=== PATIENT | male | born 1980 | race Caucasian/White ===

== ENCOUNTER 2024-08-19 10:40 | Emergency (ER) | payer OTHER ==
[2024-08-19] MEDS: Iopamidol 755 Mg/ML 100 ML Bottle IVPUSH ONE (11:13)
[2024-08-19] MEDS ORDERED: Sodium Chloride 0.9% 100 ML IV SCH (11:15)
[2024-08-19 11:24] LABS: BASOPHILS PERCENT AUTO 0.7 % (0.0-1.0); EOSINOPHILS ABSOLUTE AUTO 0.1 K/mm3 (0.0-0.4); EOSINOPHILS PERCENT AUTO 2.1 % (0.0-6.0); HEMATOCRIT 43.6 % (42.0-52.0); HEMOGLOBIN 15.3 gm/dl (14.0-18.0); IMMATURE GRAN ABSOLUTE AUTO 0.01 K/mm3 (0.00-0.05); IMMATURE GRAN PERCENT AUTO 0.2 % (0.0-0.4); LYMPHOCYTES ABSOLUTE AUTO 1.5 K/mm3 (1.0-4.8); MEAN CORPUSCULAR HEMOGLOBIN 30.6 pg (28.0-32.0); MEAN CORPUSCULAR HGB CONC 35.1 g/dl (32.0-36.0); MEAN CORPUSCULAR VOLUME 87.2 fl (83.0-99.0); MEAN PLATELET VOLUME 9.1 fl (9.4-12.4); MONOCYTES ABSOLUTE AUTO 0.5 K/mm3 (0.0-0.8); PLATELET COUNT,PLT 254 K/mm3 (150-400); WHITE BLOOD CELL COUNT,WBC 6.13 K/mm3 (3.9-11.3)
[2024-08-19 11:49] LABS: A/G RATIO 1.3 (1-2); ALANINE AMINOTRANSFERASE,ALT 57 U/L (16-63); ALBUMIN 3.9 g/dl (3.4-5.0); ALKALINE PHOSPHATASE 41 U/L (46-116); ANION GAP 7.5 (5-15); ASPARTATE AMNIOTRANSFERASE,AST 20 U/L (15-37); BILIRUBIN TOTAL 0.5 mg/dL (0.2-1.0); BLOOD UREA NITROGEN,BUN 13 mg/dL (7-18); BUN/CREATININE RATIO 11.8 (14-18); C-REACTIVE PROTEIN 0.11 mg/dL (<0.30); CALCIUM 8.5 mg/dL (8.5-10.1); CARBON DIOXIDE,CO2 30 mEq/L (21-32); CHLORIDE,CL 103 mEq/L (98-107); CREATININE 1.1 mg/dL (0.7-1.3); EST CRCL DRUG DOSING (CG) 95.04 mL/min; ESTIMATED GFR 85 mL/min (>60); GLUCOSE RANDOM 91 mg/dL (70-99); MAGNESIUM 1.9 mg/dL (1.8-2.4); POTASSIUM,K 4.5 mEq/L (3.5-5.1); PROTEIN TOTAL,TP 6.8 g/dl (6.4-8.2); SODIUM,NA 136 mEq/L (136-145)
[2024-08-19 11:51] LABS: TROPONIN I HIGH SENSITIVITY < 4 pg/mL (<=76)
[2024-08-19] MEDS: Aspirin 81 MG Tab.Chew PO ONE (13:31)
[2024-08-19] MEDS ORDERED: Clopidogrel 75 MG Tab PO ONE (13:35)
[2024-08-19 13:37] LABS: CHOLESTEROL HDL 43 mg/dL (40-59); CHOLESTEROL LDL DIRECT 119 mg/dL (<100); CHOLESTEROL TOTAL 175 mg/dL (<200); TRIGLYCERIDES 124 mg/dL (<150)
[2024-08-19] MEDS: atorvaSTATin 20 MG Tab PO ONE (13:53)
[2024-08-19] MEDS: Clopidogrel 75 MG Tab PO ONE (13:54)
[2024-08-19] MEDS: Clopidogrel 75 MG Tab ONE (14:20)
== END 2024-08-19 14:30 | disposition home or self-care (01) ==
LOC: JD.ED 10:40
DX: I63.9 Cerebral infarction, unspecified (principal); Z79.899 Other long term (current) drug therapy; Z79.02 Long term (current) use of antithrombotics/antiplatelets
CPT/HCPCS: 36415; 70450; 70496; 70498; 80053; 80061; 82947; 83735; 84484; 85025; 86140; 93005; 99285; A9270; Q9967; 93010